=== PATIENT | female | born 1955 | race Caucasian/White ===

== ENCOUNTER 2017-06-14 16:20 | Emergency (ER) | payer OTHER ==
[~2017-06-14] VITALS: Ht 165.1 cm; Wt 90.0 kg
[~2017-06-14 16:20] MED LIST: ASPI-516 CHEW; ASPI1TAB57 PO; DILT180C56 PO; LISI10TA PO; METF850T PO; SERT-132 PO; SIMV20TA PO; WARF-23 PO
[2017-06-14 16:24] VITALS: BP 161/96; PULSE 105; RESP 16; TEMP 99.4; O2SAT 97
[2017-06-14] MEDS ORDERED: SODIUM CHLORIDE 0.9% FLUSH 10 ML FLUSH IVF PRN (18:15)
--- NOTE | 2017-06-14 18:32 | PD ---
HPI . Palpitations Chief Complaint: Cardiac Complaint Time Seen by Provider: 18:12 Travel History International Travel<30 days: No Contact w/Intl Traveler<30days: No Traveled to known affect area: No History of Present Illness HPI Patient presents with chief complaint of palpitations. Onset was last night. Symptoms have persisted. Symptoms are mild. No noted modifying factors. She was just started on a new diabetic medication and is concerned that this is a side effect of medication. PFSH Past Medical History Heart Rhythm Problems: No Cancer: No Cardiac Catheterization: No Cardiovascular Problems: Yes ("HX OF AFIB") High Cholesterol: No Congestive Heart Failure: No Diabetes: Yes Patient Takes Glucophage: No Hypertension: Yes Musculoskeletal: Yes Neurologic: No (0) Psychiatric: No Respiratory: No Myocardial Infarction: No Menopausal: Yes Past Surgical History Surgical History: No Previous Surgery Coronary Artery Bypass Graft: No Social History Alcohol Use: No ("NOT ANYMORE") Tobacco Use: No Substance Use: No Allergies-Medications (Allergen,Severity, Reaction): Coded Allergies: No Known Allergies (Verified Adverse Reaction, Unknown, 06/14/17) Reported Meds & Prescriptions Reported Meds & Active Scripts Active Reported Victoza 3-Don (Liraglutide) 0.6 Mg/0.1 Ml (18 Mg/3 Ml) Pen.injctr Metformin (Metformin HCl) 850 Mg Tab 850 Mg PO TID With meals Review of Systems Except as stated in HPI: all other systems reviewed are Neg General / Constitutional: No: Fever, Chills Cardiovascular: Positive: Palpitations, No: Chest Pain or Discomfort Respiratory: Positive: Shortness of Breath Gastrointestinal: No: Nausea, Vomiting, Diarrhea Physical Exam Narrative GENERAL: Awake and alert and in no distress. SKIN: warm/dry. Normal color and turgor. HEAD: Normocephalic. Atraumatic. EYES: Pupils equal and round. No scleral icterus. No injection or drainage. ENT: No nasal bleeding or discharge. Mucous membranes pink and moist. NECK: Trachea midline. Full range of motion without pain.. CARDIOVASCULAR: Regular rate and rhythm. Heart sounds are normal. RESPIRATORY: No accessory muscle use. Clear to auscultation. Breath sounds equal bilaterally. GASTROINTESTINAL: Abdomen soft. Nontender. Bowel sounds present. Nondistended. Minimally MUSCULOSKELETAL: No obvious deformities. NEUROLOGICAL: Awake and alert. No obvious cranial nerve deficits. Motor grossly within normal limits. Normal speech. PSYCHIATRIC: Appropriate mood and affect; insight and judgment normal. Data Data Last Documented VS Vital Signs Date Time Temp Pulse Resp B/P (MAP) Pulse Ox O2 Delivery O2 Flow Rate FiO2 06/14/17 19:17 88 15 144/88 (106) 96 Room Air 06/14/17 16:24 99.4 Orders Orders Electrocardiogram (06/14/17 ) Electrocardiogram (06/14/17 18:12) Basic Metabolic Panel (Bmp) (06/14/17 18:12) Ckmb (Isoenzyme) Profile (06/14/17 18:12) Complete Blood Count With Diff (06/14/17 18:12) Magnesium (Mg) (06/14/17 18:12) Prothrombin Time / Inr (Pt) (06/14/17 18:12) Act Partial Throm Time (Ptt) (06/14/17 18:12) Troponin I (06/14/17 18:12) Chest, Single Ap (06/14/17 18:12) Ecg Monitoring (06/14/17 18:12) Bilateral Bp Monitoring (06/14/17 18:12) Iv Access Insert/Monitor (06/14/17 18:12) Oximetry (06/14/17 18:12) Oxygen Administration (06/14/17 18:12) Sodium Chloride 0.9% Flush (Ns Flush) (06/14/17 18:15) Labs Laboratory Tests Test 06/14/17 18:30 White Blood Count 12.4 TH/MM3 Red Blood Count 4.46 MIL/MM3 Hemoglobin 14.5 GM/DL Hematocrit 42.2 % Mean Corpuscular Volume 94.6 FL Mean Corpuscular Hemoglobin 32.5 PG Mean Corpuscular Hemoglobin Concent 34.3 % Red Cell Distribution Width 12.8 % Platelet Count 310 TH/MM3 Mean Platelet Volume 7.3 FL Neutrophils (%) (Auto) 74.1 % Lymphocytes (%) (Auto) 15.8 % Monocytes (%) (Auto) 8.9 % Eosinophils (%) (Auto) 0.7 % Basophils (%) (Auto) 0.5 % Neutrophils # (Auto) 9.2 TH/MM3 Lymphocytes # (Auto) 2.0 TH/MM3 Monocytes # (Auto) 1.1 TH/MM3 Eosinophils # (Auto) 0.1 TH/MM3 Basophils # (Auto) 0.1 TH/MM3 CBC Comment DIFF FINAL Differential Comment Prothrombin Time 10.4 SEC Prothromb Time International Ratio 1.0 RATIO Activated Partial Thromboplast Time 25.2 SEC Blood Urea Nitrogen 12 MG/DL Creatinine 0.73 MG/DL Random Glucose 220 MG/DL Calcium Level 9.2 MG/DL Magnesium Level 1.8 MG/DL Sodium Level 137 MEQ/L Potassium Level 3.9 MEQ/L Chloride Level 102 MEQ/L Carbon Dioxide Level 25.5 MEQ/L Anion Gap 10 MEQ/L Estimat Glomerular Filtration Rate 81 ML/MIN Total Creatine Kinase 52 U/L Troponin I LESS THAN 0.02 NG/ML MDM Medical Decision Making Medical Screen Exam Complete: Yes Emergency Medical Condition: Yes Interpretation(s) EKG shows sinus rhythm with left ventricular hypertrophy. No ST segment elevation or depression. No extra beats. Differential Diagnosis Differential diagnosis of palpitations includes but is not limited to anxiety, SVT, aVF with RVR, VT, sinus tachycardia, PVCs Narrative Course This patient presents with the chief complaint palpitation. It sounds like she is probably having PVCs. EKG shows a sinus rhythm. CBC & BMP Diagram 06/14/17 18:30 Calcium Level 9.2, Magnesium Level 1.8 trop < 0.02 Last Impressions Chest X-Ray 06/14/17 1812 Signed Impressions: Service Date/Time: Wednesday, June 14, 2017 18:24 - CONCLUSION: No evidence of acute cardiopulmonary disease. Manuel Oliveira MD This patient has remained in normal sinus rhythm here. She is stable for discharge to home. Diagnosis Primary Impression: Palpitations Patient Instructions: General Instructions, Heart Palpitations (DC) Disposition: DISCHARGE HOME Condition: Stable Natalie Buenrostro MD Jun 14, 2017 18:32
[2017-06-14 18:45] LABS: AUTOMATED NEUTROPHIL # 9.2 TH/MM3 (1.8-7.7); BASOPHIL # 0.1 TH/MM3 (0-0.2); BASOPHIL % 0.5 % (0.0-2.0); EOSINOPHIL # 0.1 TH/MM3 (0-0.4); EOSINOPHIL % 0.7 % (0.0-4.0); HEMATOCRIT 42.2 % (35.0-46.0); HEMOGLOBIN 14.5 GM/DL (11.6-15.3); LYMPH % 15.8 % (9.0-44.0); MEAN CELL VOLUME 94.6 FL (80.0-100.0); MEAN CORPUSCULAR HEMOGLOBIN 32.5 PG (27.0-34.0); MEAN CORPUSCULAR HGB CONC 34.3 % (32.0-36.0); MEAN PLATELET VOLUME 7.3 FL (7.0-11.0); MONO % 8.9 % (0.0-8.0); MONOCYTE # 1.1 TH/MM3 (0-0.9); NEUT % 74.1 % (16.0-70.0); PLATELET COUNT 310 TH/MM3 (150-450); RED BLOOD COUNT 4.46 MIL/MM3 (4.00-5.30); RED CELL DISTRIBUTION WIDTH 12.8 % (11.6-17.2); WHITE BLOOD COUNT 12.4 TH/MM3 (4.0-11.0)
[2017-06-14 18:57] VITALS: O2SAT 98
[2017-06-14 18:57] LABS: PROTHROMBIN TIME - PATIENT 10.4 SEC (9.8-11.6)
--- NOTE | 2017-06-14 18:57 | RADRPT ---
EXAM DATE/TIME: 06/14/2017 18:24 [facility] COMPARISON: No previous studies available for comparison. INDICATIONS : Chest pain. Center of chest. MEDICAL HISTORY : None. SURGICAL HISTORY : None. ENCOUNTER: Initial ACUITY: 1 day PAIN SCORE: 5/10 LOCATION: Bilateral chest FINDINGS: A single view of the chest demonstrates the lungs to be symmetrically aerated without evidence of mas s, infiltrate or effusion. The cardiomediastinal contours are unremarkable. Osseous structures are intact. CONCLUSION: No evidence of acute cardiopulmonary disease. Manuel Oliveira MD on June 14, 2017 at 18:54 Board Certified Radiologist. This report was verified electronically.
[2017-06-14] MEDS ORDERED: VICT18IN2 (19:03)
[2017-06-14 19:04] LABS: BICARBONATE 25.5 MEQ/L (21.0-32.0); BLOOD UREA NITROGEN 12 MG/DL (7-18); CALCIUM 9.2 MG/DL (8.5-10.1); CHLORIDE 102 MEQ/L (98-107); CREATININE 0.73 MG/DL (0.50-1.00); GLOMERULAR FILTRATION RATE 81 ML/MIN (>89); GLUCOSE,RANDOM 220 MG/DL (74-106); MAGNESIUM 1.8 MG/DL (1.5-2.5); SODIUM (NA) 137 MEQ/L (136-145)
[2017-06-14 19:07] LABS: TROPONIN I LESS THAN 0.02 NG/ML (0.02-0.05)
[2017-06-14 19:15] VITALS: BP 143/85; PULSE 93; RESP 16; O2SAT 96
[2017-06-14 19:17] VITALS: BP 144/88; PULSE 88; RESP 15; O2SAT 96
--- NOTE | 2017-06-15 18:02 | EKG ---
Date Performed: 06/14/2017 Time Performed: 16:56:29 PTAGE: 62 years EKG: Sinus rhythm POSSIBLE LEFT ATRIAL ENLARGEMENT MARKED LEFT AXIS DEVIATION POSSIBLE LEFT VENTRICULAR HYPERTROPHY Li ght R wave transition. ABNORMAL ECG PREVIOUS TRACING : 01/29/2013 04.47 DOCTOR: Dante High Interpretating Date/Time 06/15/2017 18:02:05
== END 2017-06-14 20:01 | disposition home or self-care (01) ==
LOC: NEPE 16:20
DX: R00.2 Palpitations (principal); R07.9 Chest pain, unspecified; R94.31 Abnormal electrocardiogram [ECG] [EKG]; E11.9 Type 2 diabetes mellitus without complications; Z79.84 Long term (current) use of oral hypoglycemic drugs
CPT/HCPCS: 71045; 80048; 82550; 83735; 84484; 85025; 85610; 85730; 93005